=== PATIENT | male | born 1970 | race Caucasian/White ===

== ENCOUNTER 2016-07-22 11:43 | Day surgery (SDC) | payer OTHER ==
--- NOTE | ~2016-07-22 | EGD ---
EGD REPORT [facility] [address] [address] NAME: EDWARDO ARREOLA : [birth year] STATUS : REG [facility] [place] PAT#: [id number] AGE: 45 ADM/REG DATE : 07/22/16 MR#: [id number] REPORT SERV DATE: 07/22/16 DICTATED BY: MAXIME DANG DATE: 07/22/16 REPORT STATUS : Draft TRANSCRIBED BY: [facility] DATE: 07/22/16 [facility] Center Patient Name: Edwardo Arreola Date of : 1970 Attending MD: MAXIME DANG MD Procedure Date No Time: 07/22/2016 Procedure: Colonoscopy Indications: Abnormal CT of the GI tract, Abnormal small bowel series Referring MD: GABBIE BAXTER Medicines: Propofol per Anesthesia Complications: No immediate complications. Procedure: Pre-Anesthesia Assessment: - ASA Grade Assessment: III - A patient with severe systemic disease. After I obtained informed consent, the scope was passed under direct vision. Throughout the procedure, the patient's blood pressure, pulse, and oxygen saturations were monitored continuously. The SIF Q180 [id number] was introduced through the anus and advanced to 5 cm into the ileum. The colonoscopy was unusually difficult due to significant looping. Successful completion of the procedure was aided by applying abdominal pressure. The patient tolerated the procedure well. The quality of the bowel preparation was good. Findings: The perianal and digital rectal examinations were normal. A benign-appearing, intrinsic mild stenosis was found at the ileocecal valve and was traversed. A diffuse area of mucosa in the terminal ileum was severely ulcerated. Biopsies were taken with a cold forceps for histology. The terminal ileum contained a benign-appearing, intrinsic severe stenosis that was non-traversed. The exam was otherwise normal throughout the examined colon. Impression: - Stricture at the ileocecal valve. - Ulcerated mucosa in the terminal ileum. Biopsied. - Stricture in the terminal ileum. Recommendation: - Await pathology results. - If biopsies confirm Crohn's, will begin biologic therapy. - Patient has a contact number available for emergencies. The signs and symptoms of potential delayed complications were discussed with the patient. Return to EGD REPORT [address] [place]. [address] NAME: EDWARDO ARREOLA : [birth year] STATUS : [place] [facility] [place] PAT#: [id number] AGE: 45 ADM/REG DATE : 07/22/16 MR#: [id number] REPORT SERV DATE: 07/22/16 DICTATED BY: MAXIME DANG DATE: 07/22/16 REPORT STATUS : Draft TRANSCRIBED BY: [email or web address] DATE: 07/22/16 normal activities tomorrow. Written discharge instructions were provided to the patient. - Mechanical soft diet. - Continue present medications. - Repeat colonoscopy for surveillance based on pathology results. Procedure Code(s): --- Professional --- 71411, Colonoscopy, flexible, proximal to splenic flexure; with biopsy, single or multiple Diagnosis Code(s): --- Professional --- K56.69, Other intestinal obstruction K63.3, Ulcer of intestine R93.3, Abnormal findings on diagnostic imaging of other parts of digestive tract CPT copyright 2013 [employer]. All rights reserved. The codes documented in this report are preliminary and upon operating room aide review may be revised to meet current compliance requirements. MAXIME DANG MD 07/22/2016 2:29 PM This report has been signed electronically. Number of Addenda: 0 Note Initiated On: 07/22/2016 1:51 PM Scope Withdrawal Time 0 hours 0 minutes 0 seconds [address] [id number]
[~2016-07-22 11:43] MED LIST: AVINZA30 PO; CYMBALTA30 PO; KLONO5 PO; LORT7 PO; PROZAC40 MG PO; SUBOXONE 2 MG-1 EAC1 SL; ZOCOR20 PO
== END 2016-07-22 23:59 | disposition home or self-care (01) ==
LOC: DMU 11:43
PROVIDERS: Internal Medicine Gastroenterology
PROC: 0DBB8ZX Excision of Ileum, Via Natural or Artificial Opening Endoscopic, Diagnostic (ICD-10-PCS; principal; 2016-07-22 14:00)
DX: K52.9 Noninfective gastroenteritis and colitis, unspecified (principal); K56.69 Other intestinal obstruction; K63.3 Ulcer of intestine; G47.33 Obstructive sleep apnea (adult) (pediatric); G89.29 Other chronic pain; F41.9 Anxiety disorder, unspecified; D64.9 Anemia, unspecified; R07.89 Other chest pain; Z99.89 Dependence on other enabling machines and devices; Z86.69 Personal history of other diseases of the nervous system and sense organs; Z88.8 Allergy status to other drugs, medicaments and biological substances; Z79.899 Other long term (current) drug therapy; Z98.890 Other specified postprocedural states
CPT/HCPCS: 88305; J2405